=== PATIENT | male | born 1950 | race African-American/Black ===

== ENCOUNTER 2023-02-13 11:26 | Inpatient (IN) | payer OTHER ==
[2023-02-13 11:55] LABS: #Eosinphils 0.2 10x3/uL (0.0-0.5); #Monocytes 0.4 10x3/uL (0.0-1.1); #Neutrophils 2.5 10x3/uL (1.5-8.4); %Basophils 0.7 % (0.0-2.0); %Eosinophils 4.5 % (0.0-6.0); %Lymphocytes 29.3 % (18.0-47.0); %Monocytes 9.6 % (0.0-10.0); %Neutrophils 55.7 % (40.0-75.0); Hematocrit 19.7 % (38.8-50.0); Mean Corpuscular HGB CONC 30.5 g/dL (32.0-36.0); Mean Corpuscular Hemoglobin 29.6 pg (27.0-33.0); Platelet Count 186 10x3/uL (150-450); RBC Distribution Width 19.2 % (11.5-14.5); Red Blood Cell (RBC) Count 2.03 10x6/uL (4.32-5.72); White Blood Cell (WBC) Count 4.5 10x3/uL (3.5-10.5)
[2023-02-13 12:06] LABS: INR-International Normal Ratio 0.9; PTT 27.3 sec (22.0-33.0); Prothrombin Time 10.1 sec (9.5-12.1)
[2023-02-13 12:12] LABS: ALT (SGPT) 13 U/L (8-55); AST (SGOT) 15 U/L (5-34); Albumin 3.9 g/dL (3.4-4.8); Alkaline Phosphatase 49 U/L (40-110); Anion Gap 13 mmol/L (10-20); BUN (Urea Nitrogen) 30 mg/dL (8.4-25.7); Bilirubin, Total 0.3 mg/dL (0.2-1.2); Calc. Creatinine Clearance 0 mL/min (70-130); Calcium 8.5 mg/dL (7.8-10.44); Carbon Dioxide 22 mmol/L (23-31); Chloride 105 mmol/L (98-107); Estimated GFR 33; Globulin 2.6 g/dL (2.4-3.5); Glucose 107 mg/dL (83-110); Potassium 5.4 mmol/L (3.5-5.1); Protein, Total 6.5 g/dL (5.8-8.1); Sodium 135 mmol/L (136-145)
[2023-02-13 12:15] LABS: Troponin I Less than 0.010 ng/mL (< 0.028)
[2023-02-13] MEDS ORDERED: Ondansetron PF 4 MG/2 ML Vial IVP PRN (16:29)
[2023-02-13] MEDS ORDERED: Acetaminophen 325 MG TAB PO PRN (16:29)
[2023-02-13] MEDS ORDERED: Ondansetron ODT 4 MG TAB PO PRN (16:29)
[2023-02-14 04:34] LABS: #Eosinphils 0.2 10x3/uL (0.0-0.5); #Monocytes 0.5 10x3/uL (0.0-1.1); #Neutrophils 2.7 10x3/uL (1.5-8.4); %Basophils 0.7 % (0.0-2.0); %Eosinophils 4.1 % (0.0-6.0); %Lymphocytes 24.3 % (18.0-47.0); %Neutrophils 59.7 % (40.0-75.0); Hematocrit 23.3 % (38.8-50.0); Hemoglobin 7.2 g/dL (13.5-17.5); Mean Corpuscular HGB CONC 30.9 g/dL (32.0-36.0); Mean Corpuscular Hemoglobin 28.6 pg (27.0-33.0); Mean Corpuscular Volume 92.5 fl (81.2-95.1); Mean Platelet Volume 9.1 fl (7.4-10.4); Platelet Count 157 10x3/uL (150-450); RBC Distribution Width 19.9 % (11.5-14.5); Red Blood Cell (RBC) Count 2.52 10x6/uL (4.32-5.72); White Blood Cell (WBC) Count 4.4 10x3/uL (3.5-10.5)
[2023-02-14 04:40] LABS: Anion Gap 13 mmol/L (10-20); BUN (Urea Nitrogen) 24 mg/dL (8.4-25.7); Calc. Creatinine Clearance 0 mL/min (70-130); Calcium 8.3 mg/dL (7.8-10.44); Carbon Dioxide 20 mmol/L (23-31); Chloride 107 mmol/L (98-107); Estimated GFR 44; Glucose 91 mg/dL (83-110); Potassium 5.4 mmol/L (3.5-5.1); Sodium 135 mmol/L (136-145)
[2023-02-14 05:31] VITALS: BMI 31.0
[2023-02-14] MEDS ORDERED: GoLYTELY 4,000 ml Bottle PO SCH (06:00)
[2023-02-14] MEDS ORDERED: PROPOFOL 60 ML ONE (14:40)
[2023-02-14] MEDS ORDERED: PROPOFOL 20 ML ONE (15:29)
[2023-02-14] MEDS ORDERED: cefOXitin Sodium/Dextrose,Iso 2 GM in Premix Bag 1 BAG IVPB SCH (18:45)
[2023-02-15] MEDS ORDERED: Sodium Chloride 0.9% 1,000 ML IV SCH (05:00)
[2023-02-15 05:22] LABS: #Eosinphils 0.1 10x3/uL (0.0-0.5); #Monocytes 0.4 10x3/uL (0.0-1.1); #Neutrophils 2.3 10x3/uL (1.5-8.4); %Basophils 0.5 % (0.0-2.0); %Eosinophils 2.4 % (0.0-6.0); %Monocytes 11.3 % (0.0-10.0); %Neutrophils 61.5 % (40.0-75.0); Hematocrit 21.7 % (38.8-50.0); Hemoglobin 6.7 g/dL (13.5-17.5); Mean Corpuscular HGB CONC 30.9 g/dL (32.0-36.0); Mean Corpuscular Volume 93.9 fl (81.2-95.1); Mean Platelet Volume 9.2 fl (7.4-10.4); Platelet Count 169 10x3/uL (150-450); RBC Distribution Width 20.2 % (11.5-14.5); Red Blood Cell (RBC) Count 2.31 10x6/uL (4.32-5.72); White Blood Cell (WBC) Count 3.7 10x3/uL (3.5-10.5)
[2023-02-15 05:40] LABS: Anion Gap 13 mmol/L (10-20); BUN (Urea Nitrogen) 18 mg/dL (8.4-25.7); Calc. Creatinine Clearance 53 mL/min (70-130); Calcium 8.5 mg/dL (7.8-10.44); Carbon Dioxide 23 mmol/L (23-31); Chloride 105 mmol/L (98-107); Estimated GFR 43; Glucose 89 mg/dL (83-110); Potassium 5.4 mmol/L (3.5-5.1); Sodium 136 mmol/L (136-145)
[2023-02-15] MEDS ORDERED: Dextrose 50% Abboject 50 ML SYRINGE SLOW IVP SCH (09:00)
[2023-02-15] MEDS ORDERED: Insulin Regular 300 UNITS/3 ML VIAL IVP SCH (09:00)
[2023-02-15] MEDS ORDERED: Ibuprofen 600 MG TAB PO PRN (10:59)
[2023-02-15] MEDS ORDERED: Lidocaine 2% 6 ML (Jelly) SYR ONE (11:10)
[2023-02-15] MEDS ORDERED: PROPOFOL 20 ML ONE (11:11)
[2023-02-15] MEDS ORDERED: SUGAMMADEX SODIUM 200 MG/2 ML VIAL ONE (11:14)
[2023-02-15] MEDS ORDERED: fentaNYL 50 mcg/mL 1 mL Vial ONE (11:50)
[2023-02-15] MEDS ORDERED: Ondansetron PF 4 MG/2 ML Vial ONE (11:51)
[2023-02-15] MEDS ORDERED: Dexamethasone 4 mg/ml Vial ONE (11:51)
[2023-02-15] MEDS ORDERED: ceFOXitin 1 GM VIAL ONE (12:03)
[2023-02-15] MEDS: Acetaminophen 500 MG TAB PO SCH ×3 (14:11→21:05)
[2023-02-15] MEDS: traMADol HCl 50 MG TAB PO PRN (14:12)
[2023-02-15] MEDS ORDERED: Morphine 4 MG/ML VIAL SLOW IVP SCH (15:00)
[2023-02-15] MEDS ORDERED: Ventolin HFA Inhaler 60 PUFF INHALER INH PRN (15:04)
[2023-02-15] MEDS ORDERED: Amlodipine 10 MG TAB PO SCH (15:30)
[2023-02-15 17:21] LABS: Hemoglobin A1c 5.5 % (4.0-6.0)
[2023-02-15] MEDS: Mometasone 200 MCG/PUFF (1 INHALER) INH SCH (19:30)
[2023-02-15] MEDS: Morphine 4 MG/ML VIAL SLOW IVP PRN (21:05)
[2023-02-15] MEDS: Montelukast Sodium 10 mg Tablet PO SCH (21:06)
[2023-02-15] MEDS: Amlodipine 10 MG TAB PO SCH (21:06)
[2023-02-16] MEDS ORDERED: Mag-Al Plus 1200 MG/1200 MG/120 MG/30 ML UDCUP PO SCH (00:15)
[2023-02-16] MEDS: Morphine 4 MG/ML VIAL SLOW IVP PRN ×3 (01:23→09:19)
[2023-02-16 05:09] LABS: #Eosinphils 0.1 10x3/uL (0.0-0.5); #Monocytes 0.6 10x3/uL (0.0-1.1); #Neutrophils 3.8 10x3/uL (1.5-8.4); %Basophils 0.2 % (0.0-2.0); %Lymphocytes 14.9 % (18.0-47.0); %Monocytes 11.3 % (0.0-10.0); %Neutrophils 72.4 % (40.0-75.0); Hematocrit 25.2 % (38.8-50.0); Hemoglobin 7.8 g/dL (13.5-17.5); Mean Corpuscular Hemoglobin 29.7 pg (27.0-33.0); Mean Corpuscular Volume 95.8 fl (81.2-95.1); Platelet Count 167 10x3/uL (150-450); RBC Distribution Width 18.2 % (11.5-14.5); Red Blood Cell (RBC) Count 2.63 10x6/uL (4.32-5.72); White Blood Cell (WBC) Count 5.2 10x3/uL (3.5-10.5)
[2023-02-16 05:33] LABS: Anion Gap 12 mmol/L (10-20); BUN (Urea Nitrogen) 21 mg/dL (8.4-25.7); Calc. Creatinine Clearance 44 mL/min (70-130); Carbon Dioxide 22 mmol/L (23-31); Chloride 106 mmol/L (98-107); Estimated GFR 34; Glucose 125 mg/dL (83-110); Potassium 5.4 mmol/L (3.5-5.1); Sodium 135 mmol/L (136-145)
[2023-02-16] MEDS: Mometasone 200 MCG/PUFF (1 INHALER) INH SCH ×2 (07:50→20:15)
[2023-02-16] MEDS ORDERED: Insulin Regular 300 UNITS/3 ML VIAL IVP SCH ×2 (08:00→15:00)
[2023-02-16] MEDS ORDERED: Dextrose 50% Abboject 50 ML SYRINGE SLOW IVP SCH ×2 (08:00→15:00)
[2023-02-16] MEDS ORDERED: Lidocaine 4% Topical Sol 50 ML BOT TOP PRN (08:49)
[2023-02-16] MEDS: Acetaminophen 500 MG TAB PO SCH (09:05)
[2023-02-16] MEDS: Ferrous Sulfate 325 MG TAB PO SCH (09:06)
[2023-02-16] MEDS: Venlafaxine HCl XR 75 MG CAP PO SCH (09:06)
[2023-02-16] MEDS: Atorvastatin Calcium 10 MG TAB PO SCH (09:07)
[2023-02-16] MEDS: Senokot S 8.6-50 MG TAB PO SCH (09:07)
[2023-02-16] MEDS: Allopurinol 100 MG TAB PO SCH (09:08)
[2023-02-16] MEDS: Folic Acid 1 MG TAB PO SCH (09:08)
[2023-02-16] MEDS ORDERED: Furosemide 20 MG TAB PO SCH ×2 (11:00→15:00)
[2023-02-16] MEDS: HYDROcodone/Acetaminophen 7.5/325 mg Tablet PO PRN (14:50)
[2023-02-16] MEDS: Sodium Chloride 0.9% 1,000 ML IV SCH (15:33)
[2023-02-16] MEDS ORDERED: Mag-Al Plus 1200 MG/1200 MG/120 MG/30 ML UDCUP PO PRN (18:22)
[2023-02-16] MEDS ORDERED: Morphine 2 MG/ML VIAL SLOW IVP SCH (21:30)
[2023-02-16] MEDS: Metamucil PACK PO SCH (21:51)
[2023-02-16] MEDS: Amlodipine 10 MG TAB PO SCH (21:53)
[2023-02-16] MEDS: Montelukast Sodium 10 mg Tablet PO SCH (21:53)
[2023-02-16] MEDS: Polyethylene Glycol 3350 17 GM Packet PO SCH (21:54)
[2023-02-16] MEDS: Lidocaine-Prilocaine 2.5% Cream 5 GM TUBE TOP SCH (21:54)
[2023-02-17] MEDS: HYDROcodone/Acetaminophen 7.5/325 mg Tablet PO PRN ×5 (00:47→21:28)
[2023-02-17] MEDS: Sodium Chloride 0.9% 1,000 ML IV SCH ×2 (04:25→16:22)
[2023-02-17 05:34] LABS: #Eosinphils 0.2 10x3/uL (0.0-0.5); #Monocytes 0.5 10x3/uL (0.0-1.1); %Basophils 0.6 % (0.0-2.0); %Eosinophils 3.7 % (0.0-6.0); %Lymphocytes 20.2 % (18.0-47.0); %Monocytes 9.9 % (0.0-10.0); %Neutrophils 65.4 % (40.0-75.0); Hematocrit 25.1 % (38.8-50.0); Hemoglobin 7.8 g/dL (13.5-17.5); Mean Corpuscular HGB CONC 31.1 g/dL (32.0-36.0); Mean Corpuscular Hemoglobin 29.7 pg (27.0-33.0); Mean Corpuscular Volume 95.4 fl (81.2-95.1); Mean Platelet Volume 8.7 fl (7.4-10.4); Platelet Count 159 10x3/uL (150-450); RBC Distribution Width 18.5 % (11.5-14.5); Red Blood Cell (RBC) Count 2.63 10x6/uL (4.32-5.72); White Blood Cell (WBC) Count 4.7 10x3/uL (3.5-10.5)
[2023-02-17 05:41] LABS: Anion Gap 13 mmol/L (10-20); BUN (Urea Nitrogen) 22 mg/dL (8.4-25.7); Calc. Creatinine Clearance 50 mL/min (70-130); Calcium 8.4 mg/dL (7.8-10.44); Carbon Dioxide 22 mmol/L (23-31); Chloride 105 mmol/L (98-107); Estimated GFR 40; Glucose 107 mg/dL (83-110); Potassium 5.1 mmol/L (3.5-5.1); Sodium 135 mmol/L (136-145)
[2023-02-17] MEDS: Mometasone 200 MCG/PUFF (1 INHALER) INH SCH ×2 (08:00→18:43)
[2023-02-17] MEDS: Atorvastatin Calcium 10 MG TAB PO SCH (10:22)
[2023-02-17] MEDS: Polyethylene Glycol 3350 17 GM Packet PO SCH ×2 (10:23→21:30)
[2023-02-17] MEDS: Folic Acid 1 MG TAB PO SCH (10:23)
[2023-02-17] MEDS: Senokot S 8.6-50 MG TAB PO SCH (10:23)
[2023-02-17] MEDS: Venlafaxine HCl XR 75 MG CAP PO SCH (10:24)
[2023-02-17] MEDS: Ferrous Sulfate 325 MG TAB PO SCH (10:24)
[2023-02-17] MEDS: Allopurinol 100 MG TAB PO SCH (10:26)
[2023-02-17] MEDS: Metamucil PACK PO SCH ×2 (10:26→21:30)
[2023-02-17] MEDS: Lidocaine-Prilocaine 2.5% Cream 5 GM TUBE TOP SCH ×2 (10:26→21:35)
[2023-02-17] MEDS ORDERED: Gabapentin 300 MG CAP PO SCH (11:15)
[2023-02-17] MEDS: Amlodipine 10 MG TAB PO SCH (21:29)
[2023-02-17] MEDS: Gabapentin 300 MG CAP PO SCH (21:29)
[2023-02-17] MEDS: Montelukast Sodium 10 mg Tablet PO SCH (21:30)
[2023-02-18] MEDS: traMADol HCl 50 MG TAB PO PRN ×2 (00:42→09:14)
[2023-02-18] MEDS: HYDROcodone/Acetaminophen 7.5/325 mg Tablet PO PRN ×2 (04:46→12:59)
[2023-02-18] MEDS: Sodium Chloride 0.9% 1,000 ML IV SCH (04:46)
[2023-02-18 05:38] LABS: Anion Gap 13 mmol/L (10-20); BUN (Urea Nitrogen) 21 mg/dL (8.4-25.7); Calc. Creatinine Clearance 53 mL/min (70-130); Calcium 8.7 mg/dL (7.8-10.44); Carbon Dioxide 22 mmol/L (23-31); Chloride 104 mmol/L (98-107); Estimated GFR 43; Glucose 103 mg/dL (83-110); Potassium 5.2 mmol/L (3.5-5.1); Sodium 134 mmol/L (136-145)
[2023-02-18 05:54] LABS: Hematocrit 25.2 % (38.8-50.0); Hemoglobin 7.9 g/dL (13.5-17.5)
[2023-02-18] MEDS: Mometasone 200 MCG/PUFF (1 INHALER) INH SCH (07:47)
[2023-02-18] MEDS ORDERED: Dextrose 50% Abboject 50 ML SYRINGE SLOW IVP SCH (08:40)
[2023-02-18] MEDS ORDERED: Insulin Regular 300 UNITS/3 ML VIAL IVP SCH (08:45)
[2023-02-18] MEDS: Lidocaine-Prilocaine 2.5% Cream 5 GM TUBE TOP SCH (08:57)
[2023-02-18] MEDS ORDERED: Furosemide 20 MG TAB PO SCH (09:00)
[2023-02-18 09:11] VITALS: TEMP 98.5
[2023-02-18] MEDS: Gabapentin 300 MG CAP PO SCH (09:12)
[2023-02-18] MEDS: Venlafaxine HCl XR 75 MG CAP PO SCH (09:13)
[2023-02-18] MEDS: Polyethylene Glycol 3350 17 GM Packet PO SCH (09:13)
[2023-02-18] MEDS: Senokot S 8.6-50 MG TAB PO SCH (09:13)
[2023-02-18] MEDS: Ferrous Sulfate 325 MG TAB PO SCH (09:13)
[2023-02-18] MEDS: Folic Acid 1 MG TAB PO SCH (09:13)
[2023-02-18] MEDS: Metamucil PACK PO SCH (09:14)
[2023-02-18] MEDS: Atorvastatin Calcium 10 MG TAB PO SCH (09:15)
[2023-02-18] MEDS: Allopurinol 100 MG TAB PO SCH (09:15)
[2023-02-18 12:24] VITALS: BP 137/80
== END 2023-02-18 15:06 | disposition home or self-care (01) | DRG 348 ==
LOC: CSHERS 11:26 → CSHTELE 16:13
PROVIDERS: ADMIT Internal Medicine; ATTEND Internal Medicine
PROC: 0DJ08ZZ Inspection of Upper Intestinal Tract, Via Natural or Artificial Opening Endoscopic (ICD-10-PCS; 2023-02-14)
PROC: 0DBM8ZZ Excision of Descending Colon, Via Natural or Artificial Opening Endoscopic (ICD-10-PCS; 2023-02-14)
PROC: 0DBL8ZZ Excision of Transverse Colon, Via Natural or Artificial Opening Endoscopic (ICD-10-PCS; 2023-02-14)
PROC: 0DBN8ZZ Excision of Sigmoid Colon, Via Natural or Artificial Opening Endoscopic (ICD-10-PCS; 2023-02-14)
PROC: 06BY0ZC Excision of Hemorrhoidal Plexus, Open Approach (ICD-10-PCS; principal; 2023-02-15)
PROC: 30233N1 Transfusion of Nonautologous Red Blood Cells into Peripheral Vein, Percutaneous Approach (ICD-10-PCS; 2023-02-15)
DX: K64.8 Other hemorrhoids (principal); D62 Acute posthemorrhagic anemia; K92.2 Gastrointestinal hemorrhage, unspecified; N17.9 Acute kidney failure, unspecified; E11.22 Type 2 diabetes mellitus with diabetic chronic kidney disease; K21.9 Gastro-esophageal reflux disease without esophagitis; N40.0 Benign prostatic hyperplasia without lower urinary tract symptoms; D63.1 Anemia in chronic kidney disease; D50.9 Iron deficiency anemia, unspecified; E78.5 Hyperlipidemia, unspecified; J45.909 Unspecified asthma, uncomplicated; M10.9 Gout, unspecified; N18.31 Chronic kidney disease, stage 3a; K59.00 Constipation, unspecified; K63.5 Polyp of colon; Z98.890 Other specified postprocedural states; Z87.891 Personal history of nicotine dependence
CPT/HCPCS: 36415; 36430; 80048; 80053; 82274; 83036; 84484; 85014; 85018; 85025; 85610; 85730; 86850; 86900; 86901; 88304; 88305; 88341; 88342; 93005; 93010; 93306; 94664; 94760; 94762; 99285; A4649; J0694; J1100; J1815; J2270; J2272; J2405; J2704; J3010; J7050; J7999; P9016